=== PATIENT | male | born 1980 | race Caucasian/White ===

== ENCOUNTER 2017-07-19 13:43 | Emergency (ER) | payer SELFPAY ==
[2017-07-19 15:25] VITALS: TEMP 99.7
--- NOTE | 2017-07-19 15:39 | ED.PDOC ---
History of Present Illness - General Chief Complaint: Lower Extremity Injury Stated Complaint: fall Time Seen by Provider: 07/19/17 15:31 Source: patient Exam Limitations: no limitations - History of Present Illness Initial Comments: Agustin Landeros 37 y/o male stated twisted his right ankle as he was going down stool step no fall,but with sharp pains right ankle with pain on weight bearing.It happened at his house. Occurred: just prior to arrival Pain - Lower Extremity: moderate: Right Ankle Method of Injury: twisted Improving Factors: rest Worsening Factors: movement Associated Symptoms: pain Allergies/Adverse Reactions: Allergies NO KNOWN ALLERGY Allergy (Verified 07/19/17 15:25) Home Medications: Ambulatory Orders Acetaminophen W/ Codeine [Tylenol w/Codeine 300-30 mg] 1 tab PO Q4HR PRN #30 tab 07/19/17 Review of Systems - Review of Systems Constitutional: States: no symptoms reported Respiratory: States: no symptoms reported Cardiology: States: no symptoms reported Musculoskeletal: States: see HPI Past Medical History (General) - Patient Medical History Hx Seizures: No Hx Stroke: No Hx Dementia: No Hx Asthma: No Hx of COPD: No Hx Cardiac Disorders: No Hx Congestive Heart Failure: No Hx Pacemaker: No Hx Hypertension: No Hx Thyroid Disease: No Hx Diabetes: No Hx Gastroesophageal Reflux: No Hx Renal Disease: No Hx of HIV: No Hx MRSA: No Surgical History: no surgical history - Vaccination History Hx Tetanus, Diphtheria Vaccination: No Hx Influenza Vaccination: No Hx Pneumococcal Vaccination: No - Social History Hx Tobacco Use: Yes Hx Alcohol Use: Yes - occasional Hx Substance Use: No Hx Substance Use Treatment: No Hx Depression: No Family Medical History - Family History Mother Family History: No Known Physical Exam - Physical Exam General Appearance: Alert, Comfortable, No apparent distress Eyes, Ears, Nose, Throat: normal ENT inspection Neck: full range of motion, supple Cardiovascular/Respiratory: regular rate, rhythm, normal peripheral pulses Gastrointestinal/Abdominal: non-tender, no organomegaly Back: no vertebral tenderness Thigh/Hip: no evidence of injury Leg: no evidence of injury Knee: no evidence of injury Ankle: limited ROM - right painful, soft tissue tenderness, swelling - lateral malleolus Foot: no evidence of injury Neuro/Tendon: normal sensation, normal motor functions Mental Status: alert, oriented x 3 Skin: normal color, warm/dry Progress - EKG/XRAY/CT XRAY: ankle - fracture righ fibula and distal tibia -malleolus Procedures - Splinting Right Ankle Hand-Made Type: orthoglass Splint: posterior walking Pre-Proc Neuro Vasc Exam: normal Post-Proc Neuro Vasc Exam: normal Departure - Departure Clinical Impression: Fracture of ankle, medial malleolus, closed Qualifiers: Encounter type: initial encounter Fracture alignment: nondisplaced Laterality: right Qualified Code(s): S82.54XA - Nondisplaced fracture of medial malleolus of right tibia, initial encounter for closed fracture Fibula fracture Qualifiers: Encounter type: initial encounter Fibula location: distal Fracture type: closed Fracture morphology: unspecified fracture morphology Laterality: right Qualified Code(s): S82.831A - Other fracture of upper and lower end of right fibula, initial encounter for closed fracture Time of Disposition: 17:37 Disposition: Discharge to Home or Self Care Departure Forms: ED Discharge - Pt. Copy, Patient Portal Self Enrollment Instructions: DI for Ankle Fracture, Ankle Fracture Prescriptions: Acetaminophen W/ Codeine [Tylenol w/Codeine 300-30 mg] 1 tab PO Q4HR PRN #30 tab PRN Reason: Pain Home Medications: Ambulatory Orders Acetaminophen W/ Codeine [Tylenol w/Codeine 300-30 mg] 1 tab PO Q4HR PRN #30 tab 07/19/17 Additional Instructions: Elevate right leg at bedtime;Follow up with ORTHOPEDIST of choice 07/20/2017 patient to call for appointment
--- NOTE | 2017-07-19 16:00 | RAD ---
Examination: XR ANKLE 3 OR MORE VIEWS dated 07/19/2017 3:42 PM CDT History: pain Comparison: None Technique: Three views of the right ankle FINDINGS AND IMPRESSION: Mildly displaced fracture of the distal fibular shaft. Mildly displaced avulsion fracture of the medial malleolus. Soft tissue swelling about the ankle. Small joint effusion. No dislocation. Electronically signed by: Oscar Ortega MD 07/19/2017 3:59 PM CDT
[2017-07-19] MEDS ORDERED: HYDROcodone 10MG/APAP 325MG 1 EA TAB PO ONE (17:32)
[2017-07-19 17:59] VITALS: BP 145/80; O2SAT 100
== END 2017-07-19 17:59 | disposition home or self-care (01) ==
LOC: ER 13:43
DX: S82.831A Other fracture of upper and lower end of right fibula, initial encounter for closed fracture (principal); S82.54XA Nondisplaced fracture of medial malleolus of right tibia, initial encounter for closed fracture; X50.1XXA Overexertion from prolonged static or awkward postures, initial encounter; Y92.009 Unspecified place in unspecified non-institutional (private) residence as the place of occurrence of the external cause

== ENCOUNTER → 2017-07-30 | Outpatient (CLI) | payer SELFPAY ==
--- NOTE | 2017-07-30 22:42 | RAD ---
EXAM DESCRIPTION: Ankle,Right 3 Views CLINICAL HISTORY: 37 years Male, BIMALLEOLAR FRACTURE OF ANKLE COMPARISON: 07/19/2017 FINDINGS: Cast material overlies the right ankle. Redemonstrated minimally medial malleolus fracture. Redemonstrated comminuted minimally displaced distal fibular diaphyseal fracture. IMPRESSION: 1. Stable minimally displaced distal right fibular and medial malleolus fractures. Electronically signed by: Sivakumar Hernandez 07/30/2017 10:41 PM CDT
== END | disposition home or self-care (01) ==
LOC: RAD 08:07
PROVIDERS: ATTEND Orthopaedic Surgery
DX: S82.841D Displaced bimalleolar fracture of right lower leg, subsequent encounter for closed fracture with routine healing (principal); X58.XXXA Exposure to other specified factors, initial encounter

== ENCOUNTER → 2017-08-06 | Outpatient (CLI) | payer SELFPAY ==
--- NOTE | 2017-08-07 08:18 | RAD ---
EXAM DESCRIPTION: Ankle,Right 3 Views CLINICAL HISTORY: 37 years, Male, BIMALLEOLAR FX COMPARISON: July 30, 2017, July 19, 2017 TECHNIQUE: AP/lateral/oblique of the ankle FINDINGS: An encircling fiberglass cast surrounds the right distal leg, ankle, and proximal foot. Stable alignment of oblique distal fibular shaft fracture as well as medial malleolar fracture and posterior malleolar fracture is evident without disruption of the ankle mortise. No displacement or convincing evidence of significant healing through the encircling fiberglass cast is not apparent. Compared to more remote precasted imaging no significant change in alignment is noted. IMPRESSION: 1. Stable alignment of distal fibular shaft fracture as well as medial and posterior malleolar ankle fractures, unchanged Electronically signed by: Solitario Newberry MD 08/07/2017 8:16 AM CDT
== END | disposition home or self-care (01) ==
LOC: RAD 08:11
PROVIDERS: ATTEND Orthopaedic Surgery
DX: S82.841D Displaced bimalleolar fracture of right lower leg, subsequent encounter for closed fracture with routine healing (principal); N36.8 Other specified disorders of urethra; R36.0 Urethral discharge without blood

== ENCOUNTER → 2017-08-17 | Outpatient (CLI) | payer SELFPAY ==
--- NOTE | 2017-08-16 01:15 | RAD ---
EXAM DESCRIPTION: Ankle,Right 3 Views CLINICAL HISTORY: 37 years Male, FX COMPARISON: 07/19/2017 FINDINGS: Cast material overlies the right ankle. Redemonstrated minimally medial malleolus fracture. Redemonstrated comminuted minimally displaced distal fibular diaphyseal fracture. IMPRESSION: 1. Stable minimally displaced distal right fibular and medial malleolus fractures. Electronically signed by: Sivakumar Hernandez 08/16/2017 1:14 AM [facility]
--- NOTE | 2017-08-17 09:28 | RAD ---
Right ankle three views INDICATION: Closed fracture acute COMPARISON: August 14, 2017 IMPRESSION: Trimalleolar fractures are noted right ankle. Similar alignment compared to the previous study three days ago. No osseous bridging. Several millimeters of lateral displacement of the distal fibular segment. Relatively transverse medial malleolar fracture with several millimeters of distraction. Mildly elevated/impacted posterior malleolar fracture fragment. No definite osteochondral lesion of the talar dome. No widening of the syndesmosis Electronically signed by: Maxi Dias MD 08/17/2017 9:26 AM [facility]
== END | disposition home or self-care (01) ==
LOC: RAD 08-14 08:23
PROVIDERS: ATTEND Orthopaedic Surgery
DX: S82.91XD Unspecified fracture of right lower leg, subsequent encounter for closed fracture with routine healing (principal)

== ENCOUNTER 2017-08-21 04:27 | Day surgery (SDC) | payer SELFPAY ==
--- NOTE | 2017-08-19 10:52 | RAD ---
EXAM DESCRIPTION: Chest,2 Views CLINICAL HISTORY: SURGERY THURSDAY Exam COMPARISON: None FINDINGS: Two-view chest x-ray shows cardiomediastinal silhouette and pulmonary vasculature to be within normal limits. The lungs are normally aerated and clear. Costophrenic angles are sharp. Mild disc degenerative changes of the spine are seen. IMPRESSION: No radiographic evidence of acute cardiopulmonary disease. Electronically signed by: Segundo Puente MD 08/19/2017 10:50 AM [facility]
[2017-08-21] MEDS ORDERED: LACTATED RINGERS 1,000 ML ONE ×3 (06:52→12:16)
[2017-08-21] MEDS ORDERED: SODIUM CHL 0.9% 100ML MINI-BAG 100 ML IVPB ONE (06:52)
[2017-08-21] MEDS ORDERED: ceFAZolin SODIUM 1 GM VIAL ONE ×2 (06:52→08:58)
[2017-08-21] MEDS ORDERED: PROPOFOL 200 MG/20 ML VIAL IV ONE (07:00)
[2017-08-21] MEDS ORDERED: LIDOCAINE 1% 10 ML VIAL INJ ONE (07:00)
[2017-08-21] MEDS ORDERED: LIDOCAINE 2 % GEL 5 ML TUBE TOP ONE (07:19)
[2017-08-21] MEDS ORDERED: ROCURONIUM BROMIDE 10 MG/ML VIAL ONE (07:19)
[2017-08-21] MEDS ORDERED: fentaNYL CITRATE INJ 50 MCG/ML AMP ONE (07:19)
[2017-08-21 07:57] VITALS: TEMP 98.3
[2017-08-21] MEDS ORDERED: BUPIVACAINE 0.5% W/EPI 30 ML VIAL INJ ONE (08:28)
[2017-08-21] MEDS: VANCOMYCIN HCL INJ 1,000 MG VIAL IVPB ONE ×2 (09:17→10:40)
[2017-08-21] MEDS: BUPIVACAINE 0.25% INJ 30 ML VIAL INJ ONE ×2 (09:17→11:34)
[2017-08-21] MEDS: ceFAZolin SODIUM 1 GM VIAL ONE ×2 (09:17→10:40)
[2017-08-21] MEDS: MORPHINE SULFATE INJ 10 MG/ML VIAL ONE ×5 (12:00→12:20)
[2017-08-21] MEDS ORDERED: ONDANSETRON INJ 4 MG/2 ML VIAL ONE (12:03)
[2017-08-21] MEDS ORDERED: METOCLOPRAMIDE HCL INJ 10 MG/2 ML VIAL ONE (12:03)
[2017-08-21] MEDS ORDERED: HYDROcodone 5MG/APAP 325MG 1 EA TAB ONE (12:57)
[2017-08-21 14:11] VITALS: BP 150/85; O2SAT 97
--- NOTE | 2017-08-28 08:47 | OP ---
DATE OF PROCEDURE: 08/21/17 PREOPERATIVE DIAGNOSIS: 1. Bimalleolar ankle fracture. POSTOPERATIVE DIAGNOSIS: 1. Bimalleolar ankle fracture. PROCEDURE: 1. Open reduction and internal fixation. SURGEON: Yasmani Gonzales MD. CARPET CUTTER: Asim Fletcher CST, SA-C. ANESTHESIA: General anesthesia. COMPLICATIONS: None. FINDINGS: Bimalleolar ankle fracture with some fibrous healing. INDICATION: Mr. Landeros has a history of fracture of the ankle and he has been refusing surgery despite my suggestions otherwise. Finally, he acquiesced and agreed to surgery just given the fact that he is having essentially no healing and he is having to continue with his [id number] status. After discussing the risks, benefits and alternatives to that, he did give informed consent for that. PROCEDURE: The patient was brought to the Operating Room and placed in supine position. General anesthesia was induced. The patient's leg was sterilely prepped and draped. Following prepping and draping, an incision was made at the lateral border of the fibula. Dissection was carried down to the fibula and the periosteum was elevated. The fracture site was identified and debrided. Once the fracture was fully mobilized, provisional reduction was achieved. Under fluoroscopic imaging, the reduction was checked and then a plate was applied to the lateral aspect of the fibula. Screw lengths were checked and confirmed. Once the plate had been applied and reduction was achieved, attention was focused on the medial aspect. Following an incision, dissection was carried down to the medial malleolus. Following that, the fracture was identified and debrided. Following debridement of the fracture, the medial malleolus was reduced and the reduction was checked under fluoroscopic imaging. Following that, two cannulated screws were passed and the reduction was again checked under imaging. The ankle was stressed and following that, the wounds were irrigated and closed with Nylon sutures. Sterile dressings were placed. The patient was placed in a splint, awoken from anesthesia and taken to Recovery. POSTOPERATIVE INSTRUCTIONS: He is going to be [id number] for the time and we will follow along with x-rays. Once we see some healing, we will allow him to begin weight-bearing. #[id number] [facility]
== END 2017-08-21 14:00 | disposition home or self-care (01) ==
LOC: AMB 04:27
PROVIDERS: ATTEND Orthopaedic Surgery
DX: S82.841A Displaced bimalleolar fracture of right lower leg, initial encounter for closed fracture (principal); Z87.891 Personal history of nicotine dependence
CPT/HCPCS: 01480; 27814; 36415; 71020; 76000; 81001; 85025; 87070; 93005; C1713; C1769; J0690; J2270; J2405; J2765; J3010; J3370; J3490; J7050; J7120

== ENCOUNTER → 2017-08-31 | Outpatient (CLI) | payer OTHER ==
--- NOTE | 2017-08-31 18:40 | RAD ---
EXAM DESCRIPTION: Ankle,Right 3 Views CLINICAL HISTORY: 37 years, Male, UNSPECIFIED FX OF RIGHT LOWER LEG COMPARISON: August 17, 2017 TECHNIQUE: AP/lateral/oblique of the ankle FINDINGS: Three views of the right ankle demonstrate interval internal fixation of the medial malleolus with two long screws and placement of a sideplate along the oblique comminuted distal fibular fracture. Alignment is essentially anatomic. A nondisplaced fracture of the posterior malleolus does not appear internally fixed. IMPRESSION: 1. Internal fixation of the medial malleolus in the distal fibular shaft with preserved ankle mortise. Electronically signed by: Solitario Newberry MD 08/31/2017 6:39 PM [facility]
== END | disposition home or self-care (01) ==
LOC: RAD 08:23
PROVIDERS: ATTEND Orthopaedic Surgery
DX: S82.91XD Unspecified fracture of right lower leg, subsequent encounter for closed fracture with routine healing (principal)

== ENCOUNTER → 2017-09-21 | Outpatient (CLI) | payer OTHER ==
--- NOTE | 2017-09-22 08:10 | RAD ---
EXAM DESCRIPTION: Ankle,Right 3 Views CLINICAL HISTORY: 37 years,Male,CLOSED FRACTURE OF RIGHT ANKLE COMPARISON: None FINDINGS: The right ankle demonstrates fractures of the distal diaphysis which is comminuted of the fibula fixated with sideplate and screws in near anatomic position. With some mild healing. No change in displacement since prior study. 2 screws also seen lateral meals with mild displacement also stable. And a posterior malar fracture with about 1 to 2 mm of incongruency of the articular surface which is also stable. Ankle mortise and talar dome unremarkable. Soft tissues are unremarkable. IMPRESSION: Right-sided distal fibular fracture, medial malleolus and posterior malleolar fractures which show some mild increased healing since prior study and no change in the displacement. [] Electronically signed by: Marc Morse MD 09/22/2017 8:08 AM [facility]
== END | disposition home or self-care (01) ==
LOC: RAD 08:28
PROVIDERS: ATTEND Orthopaedic Surgery
DX: S82.91XD Unspecified fracture of right lower leg, subsequent encounter for closed fracture with routine healing (principal)

== ENCOUNTER → 2017-10-15 | Outpatient (CLI) | payer OTHER ==
--- NOTE | 2017-10-15 11:24 | RAD ---
EXAM DESCRIPTION: Ankle,Right 3 Views CLINICAL HISTORY: CLOSED FRACTURE OF ANKLE COMPARISON: September 21, 2017. August 31, 2017. Impression: 3 views of the right ankle. 2 cannulated screws noted within the medial malleolus. No hardware loosening or failure. Fracture line in the medial malleolus is still evident. Posterior malleolus fracture is less conspicuous. Compression plate and screw fixation of the distal fibular fracture. Fracture lines are slightly less conspicuous. No hardware failure or loosening is demonstrated. Disuse osteopenia is present. No other significant change. Electronically signed by: Fracisco Alvarado MD 10/15/2017 11:23 AM [facility]
== END | disposition home or self-care (01) ==
LOC: RAD 08:35
PROVIDERS: ATTEND Orthopaedic Surgery
DX: S82.91XD Unspecified fracture of right lower leg, subsequent encounter for closed fracture with routine healing (principal)

== ENCOUNTER → 2017-10-29 | Outpatient (CLI) | payer OTHER ==
--- NOTE | 2017-10-29 10:07 | RAD ---
EXAM DESCRIPTION: Ankle,Right 3 Views CLINICAL HISTORY: Closed fracture of the right ankle. COMPARISON: October 15, 2017. Findings/impression: Three views of the right ankle. Two cannulated screws noted within the medial malleolus. No hardware loosening or failure. Fracture line in the medial malleolus is not changed. Posterior malleolus fracture is less conspicuous. Compression plate and screw fixation of the distal fibular fracture. Fracture lines are not significantly changed. No hardware failure or loosening is demonstrated. Disuse osteopenia is present. No other significant change. Electronically signed by: Marc Botello MD 10/29/2017 10:06 AM [facility]
== END | disposition home or self-care (01) ==
LOC: RAD 08:19
PROVIDERS: ATTEND Orthopaedic Surgery
DX: S82.91XD Unspecified fracture of right lower leg, subsequent encounter for closed fracture with routine healing (principal)

== ENCOUNTER → 2017-12-18 | Outpatient (CLI) | payer OTHER ==
--- NOTE | 2017-12-18 17:43 | RAD ---
EXAM DESCRIPTION: Ankle,Right 3 Views CLINICAL HISTORY: 37 years, Male, FX OF ANKLE COMPARISON: Previous study October 29, 2017 TECHNIQUE: AP/lateral/oblique of the Right or left ankle FINDINGS: Orthopedic screws are seen through the medial malleolus. Plate and screws are seen in the lower right fibular diaphysis bridging a healing fracture in this area. Fracture healing in the region of the medial malleolar fracture appears partial. No change in alignment since previous study. Talus and calcaneus appear intact. IMPRESSION: Healing fractures of the medial malleolus and distal right fibular diaphysis with orthopedic hardware in place. Electronically signed by: Vazquez Hatch MD 12/18/2017 5:42 PM [facility]
== END ==
LOC: RAD 08:27
PROVIDERS: ATTEND Orthopaedic Surgery
DX: S82.91XD Unspecified fracture of right lower leg, subsequent encounter for closed fracture with routine healing (principal)